=== PATIENT | female | born 1985 | race Caucasian/White ===

== ENCOUNTER 2024-06-07 06:49 | Emergency (ER) | payer BC ==
[~2024-06-07] VITALS: Ht 170.2 cm; Wt 63.5 kg
[2024-06-07 07:29] VITALS: BP 121/77; TEMP 98.4; O2SAT 100
== END 2024-06-07 07:29 | disposition home or self-care (01) ==
LOC: ER 06:55
DX: S86.012A Strain of left Achilles tendon, initial encounter (principal); X58.XXXA Exposure to other specified factors, initial encounter; Y93.89 Activity, other specified; Y92.89 Other specified places as the place of occurrence of the external cause; Y99.8 Other external cause status